=== PATIENT | female | born 2000 | race Caucasian/White ===

== ENCOUNTER → 2019-11-20 12:50 | Outpatient (CLI) | payer OTHER, SELFPAY ==
--- NOTE | ~2019-11-20 | US_ITS ---
EXAMINATION: US transvaginal DATE: 11/20/2019 13:24 INDICATION: Abnormal uterine bleeding Comparison:No prior studies for comparison. TECHNIQUE: Multiple endovaginal sonographic images of the pelvis performed. FINDINGS: The uterus measures 6.3 x 3 x 4.1 cm. The endometrial complex measures 5 mm. The right ovary measures 1.3 x 1.7 x 2.1 cm and the left ovary measures 2 x 1.5 x 3.7 cm. There are small follicles in each ovary. There is no free fluid in the pelvis. There are no abnormal masses seen on either side. IMPRESSION: 1. Unremarkable pelvic ultrasound. Reviewed, dictated and finalized at location A.
== END ==
PROVIDERS: Visit Provider Nurse Practitioner
DX: N93.8 Other specified abnormal uterine and vaginal bleeding (principal)
CPT/HCPCS: 76830